=== PATIENT | male | born 1995 | race Caucasian/White ===

== ENCOUNTER 2020-07-29 10:54 | Outpatient (CLI) | payer BC, SELFPAY ==
--- NOTE | ~2020-07-29 | MR_ITS ---
EXAMINATION: MR lumbar spine wo con DATE: 07/29/2020 12:01 INDICATION: Low back pain. TECHNIQUE: Magnetic resonance imaging (MRI) of the lumbar spine was performed without intravenous con trast. Sequences included sagittal T2-weighted FSE, sagittal T2-weighted FS FSE, sagittal T1-weighted FSE, and axial T2-weighted FSE. COMPARISON: None FINDINGS: There is 5 degrees dextrocurvature of lumbar spine. There is 3 mm retrolisthesis of L2 on L 3 and L3 on L4. There are Schmorl's nodes at most levels. There is mild chronic anterior wedging of T 11 and T12 vertebral bodies. There is mildly decreased disc height at L2-L3 and moderately decreased disc height at L3-L4, L4-L5, and L5-S1. The distal spinal cord signal intensity is normal. The conus medullaris is at L1. The following disc levels are specifically discussed: L1-L2: The disc does not extend beyond the endplate margin. There is mild bilateral facet joint osteo arthritis. There is no neural foraminal stenosis. There is no central canal stenosis. L2-L3: The disc is bulging with superimposed right central extrusion. There is mild bilateral facet j oint osteoarthritis. There is mild bilateral neural foraminal stenosis. There is mild central canal s tenosis. L3-L4: The disc is bulging and has an annular fissure. There is severe bilateral facet joint osteoart hritis. There is mild right and moderate left neural foraminal stenosis. There is mild central canal stenosis. L4-L5: The disc is bulging and has an annular fissure. There is severe bilateral facet joint osteoart hritis. There is mild bilateral neural foraminal stenosis. There is mild central canal stenosis with posterior decompression. L5-S1: There is a left central extrusion. There is mild right and moderate left facet joint osteoarth ritis. There is mild left neural foraminal stenosis. There is mild central canal stenosis with space scheduler ior decompression. IMPRESSION: 1. Moderate lumbar spondylosis. Reviewed, dictated and finalized at location A. [facility]
== END 2020-07-29 10:55 ==
PROVIDERS: Visit Provider Orthopaedic Surgery
DX: M54.5 Low back pain (principal); M47.816 Spondylosis without myelopathy or radiculopathy, lumbar region
CPT/HCPCS: 72148

== ENCOUNTER 2021-04-08 01:07 | Day surgery (SDC) | payer BC, SELFPAY ==
[2021-04-04 14:07] VITALS: BMI 39.3
--- NOTE | 2021-04-07 13:53 | WPDANESEPPF ---
Anes - Initial Pre Proc Eval Procedure: Operation Date: 04/08/21 09:30 Proposed Procedures p Bilateral Vasectomy, Possible Scrotal Exploration - Gerald Blackmon MD Date/Time: 04/07/21 13:53 Surgeon: Gerald Blackmon MD Pre Op Diagnosis: sterilization Patient Data Age: 25 Gender: M Height: 1.83 m Weight: 131.55 kg Allergies Allergy/AdvReac Type Severity Reaction Status Date / Time No Known Allergies Allergy Verified 04/08/21 07:21 Home Medications Medication Instructions Recorded Confirmed Type acetaminophen [Tylenol 8 Hour] 650 mg PO Q12H PRN 04/04/21 04/08/21 History cyclobenzaprine 10 mg PO PRN PRN 04/04/21 04/08/21 History Patient hx anesthesia problems: none Family hx anesthesia problems: none [facility] Past Medical History Medical History (Updated 04/07/21 @ 13:53 by Jaden Bedoya DO) History of suicide attempt Surgical History Surgical History (Updated 04/07/21 @ 13:53 by Jaden Bedoya DO) History of tonsillectomy Social History Social History Smoking packs per day: 0.5 Smoking cigarettes per day: 10.0 Years smoked: 8 Smoking pack-years: 4.00 Smoking status: Former smoker Tobacco type: cigarettes Smoking end date: 01/08/20 Substance use: current Substance use type: marijuana Last use: 03/29/21 Living arrangements: with family Spiritual care concerns: No Anes - Eval Final PreProcedure Day of Procedure 04/07/21 13:53 Patient weight: obese Heart: regular rate and rhythm Lungs: clear to auscultation and normal air movement Airway: Mallampati scale class II Neurological: alert and oriented Last oral intake: >/= 8 hours ASA classification: II Emergent: no Anesthetic plan: proceed Anesthesia type and monitoring: general LMA and standard monitoring Informed Consent: The patient's anesthetic plan and its attendant risks and benefits were discussed with the patient/family/POA. Questions were solicited and answers provided to the satisfaction of the patient/family/POA.
[2021-04-08] VITALS (8 sets, daily range): BP systolic 123–149; BP diastolic 71–91; PULSE 80–94; RESP 12–27; TEMP 36.4–36.6; O2SAT 99–100; BMI 39.6
[2021-04-08] MEDS: LACTATED RINGERS 1,000 ML 30 ML IV CONT (07:30)
--- NOTE | 2021-04-08 07:39 | WPDHPUPDATE1 ---
History and Physical Update Update Date/Time: 04/08/21 07:39 History and Physical has been reviewed, including an updated exam of the patient. There are NO changes in the patient's condition. Risks, benefits, and alternatives have been discussed and questions answered. Patient agrees to proceed with procedure.
[2021-04-08] MEDS: ceFAZolin 3 GM/D5W 100 ML 100 ML IVPB (08:28)
--- NOTE | 2021-04-08 09:06 | W.PM.PROC2 ---
Procedure Note - Detailed Date of Procedure 04/08/21 Pre-op Diagnosis sterilization Post-op Diagnosis same Procedure Performed Bilateral vasectomy Surgeon Gerald Blackmon MD Anesthesia general Description of Procedure Patient is taken the operative suite correctly identified. Once anesthesia was obtained he was prepped and draped usual sterile fashion. Patient has a fairly thick cord bilaterally. Was difficulty palpating any vas is in the office. At this point with him under anesthesia were able to isolate the right vas. Skin incision was made. Vas was grasped with a vas clamp. We then isolated a segment transected and excised it. The ends were fulgurated and ligated. We buried the end. 1% lidocaine was used anesthetize the cord. Similar procedure was then performed on the left side. Scan was then closed using 3-0 chromic in a interrupted fashion. Patient tolerated procedure well without any complications and is taken recovery stable condition. Given the standard post vasectomy instructions Drains No Packing No Pathology yes Complications No immediate complications Condition stable Disposition PACU
== END 2021-04-08 10:50 | disposition home or self-care (01) ==
PROVIDERS: Visit Provider Urology
PROC: (CPT 55250; principal; 2021-04-08 09:30)
DX: Z30.2 Encounter for sterilization (principal); E66.9 Obesity, unspecified; Z68.39 Body mass index [BMI] 39.0-39.9, adult; Z87.891 Personal history of nicotine dependence
CPT/HCPCS: 55250; 88300; A9270; J0690; J1100; J2250; J2405; J2704; J3010; J7120